=== PATIENT | male | born 1945 | race Caucasian/White ===

== ENCOUNTER → 2016-09-11 | Outpatient (CLI) | payer OTHER, BC ==
[~2016-09-11] MED LIST: ASPCH81 PO; DYZ PO; FISHOIL PO
[2016-09-11 09:45] LABS: BLOOD UREA NITROGEN 25 mg/dl (7-18); BUN/CREATININE RATIO 25.2 (10-20); CARBON DIOXIDE 28 mmol/L (21-32); CHLORIDE 106 mmol/L (98-107); CHOLESTEROL 250 mg/dl (0-200); GLUCOSE 104 mg/dl (70-99); POTASSIUM 4.1 mmol/L (3.5-5.1); SODIUM 142 mmol/L (136-145); TRIGLYCERIDES 359 mg/dl (0-150); VERY LOW DENSITY LIPOPROT CALC 72 mg/dl
[2016-09-11 09:49] LABS: CALCIUM 9.2 mg/dl (8.5-10.1)
[2016-09-11 09:55] LABS: CHOLESTEROL/HDL RATIO 7.1; HDL CHOLESTEROL 35 mg/dl; LDL CHOLESTEROL CALCULATED 143 mg/dl; PROSTATE SPECIFIC ANTIGEN 0.523 ng/ml (0.000-4.000)
[2016-09-11 10:08] LABS: ESTIMATED AVERAGE GLUCOSE 105 mg/dl; HA1C FLAG Normal (Normal)
== END | disposition home or self-care (01) ==
LOC: C.LAB1850 07:04
PROVIDERS: ATTEND Internal Medicine
DX: R73.9 Hyperglycemia, unspecified (principal); N40.1 Benign prostatic hyperplasia with lower urinary tract symptoms; E03.9 Hypothyroidism, unspecified; E78.5 Hyperlipidemia, unspecified

== ENCOUNTER → 2016-10-23 | Outpatient (CLI) | payer OTHER, BC ==
[2016-10-23 09:36] LABS: BASO % 0.4 %; BASO ABS # 0.02 K/uL (0-0.2); COMPLETE YES; EOS % 4.3 %; HEMATOCRIT 42.6 % (42-52); IG% 0.2 %; LYMPH % 39.1 %; LYMPH ABS # 1.81 K/uL (1.2-3.4); MEAN CELL VOLUME 96.4 fL (80-100); MEAN CORPUSCULAR HEMOGLOBIN 32.6 pg (25-34); MEAN CORPUSCULAR HGB CONC 33.8 g/dl (32-36); MEAN PLATELET VOLUME 10.4 fL (7.4-10.4); MONO % 8.2 %; NEUT % 47.8 %; PLATELET COUNT 173 K/uL (130-400); RED BLOOD COUNT 4.42 M/uL (4.7-6.1); WHITE BLOOD COUNT 4.63 K/uL (4.8-10.8)
[2016-10-23 10:22] LABS: C-REACTIVE PROTEIN < 0.29 mg/dl (0-0.29); TRIGLYCERIDES 270 mg/dl (0-150); URIC ACID 7.8 mg/dl (2.6-7.2)
[2016-10-23 15:13] LABS: LYME DISEASE AB IGG NEG (NEG)
[2016-10-23 15:18] LABS: LYME DISEASE AB IGM NEG (NEG)
== END | disposition home or self-care (01) ==
LOC: C.LAB1850 07:07
PROVIDERS: ATTEND Internal Medicine
DX: E03.9 Hypothyroidism, unspecified (principal); M10.9 Gout, unspecified; R73.9 Hyperglycemia, unspecified; M25.50 Pain in unspecified joint

== ENCOUNTER → 2017-01-01 | Outpatient (CLI) | payer OTHER, BC ==
--- NOTE | 2017-01-01 09:16 | DIAGNOSTIC IMAGING REPORT ---
(RENAL)RETROPERITON COMP CLINICAL HISTORY: 71 years-old Male presenting with RENAL CYST. TECHNIQUE: Real-time grayscale and limited color Doppler ultrasound imaging of the kidneys and bladder was performed. COMPARISON: CT from 11/29/2011. FINDINGS: Right kidney: Normal echogenicity. Right kidney measures 11.4 cm. No hydronephrosis. At the lower pole of the right kidney 2 adjacent cystic appearing lesions noted measuring up to 2.8 cm. This may represent 2 adjacent simple cysts or a minimally complex cyst with a thin septation. Normal perfusion. Left kidney: Normal echogenicity. Left kidney measures 12 cm. No hydronephrosis. Subcentimeter simple cyst at the upper pole. Normal perfusion. Bladder: No bladder wall thickening. Bilateral ureteral jets present. Prominent prostate noted. Other: Hyperechogenicity of the liver could suggest hepatic steatosis. IMPRESSION: 1. Bilateral renal cysts, one of which may be minimally complex at the lower pole of the right kidney (Bosniak 2). No hydronephrosis. 2. Suggestion of prostatomegaly. 3. Suggestion of hepatic steatosis. Electronically signed by: Damián Araujo M.D. 01/01/2017 9:14 AM Dictated Date/Time: 01/01/2017 9:12 AM
== END | disposition home or self-care (01) ==
LOC: C.ULTR 08:29
PROVIDERS: ATTEND Urology
DX: N28.1 Cyst of kidney, acquired (principal); E29.1 Testicular hypofunction; N40.1 Benign prostatic hyperplasia with lower urinary tract symptoms; Z12.5 Encounter for screening for malignant neoplasm of prostate; R39.198 Other difficulties with micturition

== ENCOUNTER → 2017-03-19 | Outpatient (CLI) | payer OTHER, BC ==
[2017-03-19 09:33] LABS: HEMATOCRIT 40.6 % (42-52); MEAN CELL VOLUME 96.9 fL (80-100); MEAN CORPUSCULAR HEMOGLOBIN 33.4 pg (25-34); MEAN CORPUSCULAR HGB CONC 34.5 g/dl (32-36); MEAN PLATELET VOLUME 10.1 fL (7.4-10.4); PLATELET COUNT 195 K/uL (130-400); RED BLOOD COUNT 4.19 M/uL (4.7-6.1)
[2017-03-19 09:44] LABS: ALT/SGPT 49 U/L (12-78); AST/SGOT 27 U/L (15-37); BLOOD UREA NITROGEN 14 mg/dl (7-18); BUN/CREATININE RATIO 13.7 (10-20); CALCIUM 8.4 mg/dl (8.5-10.1); CARBON DIOXIDE 30 mmol/L (21-32); CHLORIDE 101 mmol/L (98-107); CREATININE 1.05 mg/dl (0.60-1.40); GLUCOSE 103 mg/dl (70-99); POTASSIUM 3.8 mmol/L (3.5-5.1); SODIUM 139 mmol/L (136-145); URIC ACID 7.6 mg/dl (2.6-7.2)
[2017-03-19 09:55] LABS: CHOLESTEROL 230 mg/dl (0-200); CHOLESTEROL/HDL RATIO 5.8; HDL CHOLESTEROL 40 mg/dl; LDL CHOLESTEROL CALCULATED 117 mg/dl; TRIGLYCERIDES 366 mg/dl (0-150); VERY LOW DENSITY LIPOPROT CALC 73 mg/dl
== END | disposition home or self-care (01) ==
LOC: C.LAB1850 06:46
PROVIDERS: ATTEND Internal Medicine
DX: E78.5 Hyperlipidemia, unspecified (principal); M10.9 Gout, unspecified; E29.1 Testicular hypofunction; E03.9 Hypothyroidism, unspecified; R73.9 Hyperglycemia, unspecified

== ENCOUNTER → 2017-06-20 | Outpatient (CLI) | payer OTHER, BC ==
[2017-06-20 09:33] LABS: HEMATOCRIT 42.7 % (42-52); HEMOGLOBIN 14.9 g/dL (14.0-18.0); MEAN CELL VOLUME 95.3 fL (80-100); MEAN CORPUSCULAR HEMOGLOBIN 33.3 pg (25-34); MEAN CORPUSCULAR HGB CONC 34.9 g/dl (32-36); MEAN PLATELET VOLUME 10.5 fL (7.4-10.4); PLATELET COUNT 203 K/uL (130-400); RED CELL DISTRIBUTION WIDTH CV 12.6 % (11.5-14.5); RED CELL DISTRIBUTION WIDTH SD 42.9 fL (36.4-46.3); WHITE BLOOD COUNT 4.64 K/uL (4.8-10.8)
[2017-06-20 09:56] LABS: BLOOD UREA NITROGEN 21 mg/dl (7-18); CARBON DIOXIDE 27 mmol/L (21-32); CHOLESTEROL 201 mg/dl (0-200); CREATININE 1.09 mg/dl (0.60-1.40); GLUCOSE 96 mg/dl (70-99); POTASSIUM 3.9 mmol/L (3.5-5.1); SODIUM 138 mmol/L (136-145); URIC ACID 8.7 mg/dl (2.6-7.2)
[2017-06-20 09:58] LABS: LDL CHOLESTEROL CALCULATED 124 mg/dl
== END | disposition home or self-care (01) ==
LOC: C.LAB1850 06:59
PROVIDERS: ATTEND Internal Medicine
DX: R73.9 Hyperglycemia, unspecified (principal); M10.9 Gout, unspecified; N20.0 Calculus of kidney; E78.5 Hyperlipidemia, unspecified

== ENCOUNTER → 2017-12-18 | Outpatient (CLI) | payer OTHER, BC ==
--- NOTE | 2017-12-18 12:21 | DIAGNOSTIC IMAGING REPORT ---
ULTRASOUND KIDNEYS AND BLADDER CLINICAL HISTORY: Renal cyst. COMPARISON STUDY: Renal ultrasound dated 01/01/2017. Abdominal CT dated 11/29/2011. TECHNIQUE: Real-time, grayscale, and color flow sonography of the kidneys and bladder is performed. Images are reviewed in the transverse and longitudinal planes. FINDINGS: Kidneys: The kidneys demonstrate mild cortical atrophy. The right kidney measures 12.4 x 4.9 x 7.4 cm and the left kidney measures 11.5 5. By 6.8 cm. There is no hydronephrosis. Small extrarenal pelvises are incidentally noted. No shadowing renal calculi are identified. There are 2 small cysts in the right lower pole. These are similar to previous and measure up to 3.2 cm. A subcentimeter exophytic cyst arises from left upper pole. There is no sonographic evidence of contour deforming renal mass lesion. No perinephric fluid is identified. Bladder: The prostate gland appears enlarged and heterogeneous. The bladder wall appears thickened and trabeculated suggesting chronic outlet obstruction. Bilateral ureteral jets were seen. Upper abdomen: Survey images of the liver show evidence of hepatomegaly and hepatic steatosis. IMPRESSION: 1. The kidneys demonstrate mild cortical atrophy and are without hydronephrosis. 2. Small bilateral renal cysts are similar to previous. 3. Prostatomegaly with evidence of chronic bladder outlet obstruction. Electronically signed by: Ulcies Keller M.D. 12/18/2017 12:20 PM Dictated Date/Time: 12/18/2017 12:17 PM
== END | disposition home or self-care (01) ==
LOC: C.ULTR 11:30
PROVIDERS: ATTEND Urology
DX: N28.1 Cyst of kidney, acquired (principal); N40.0 Benign prostatic hyperplasia without lower urinary tract symptoms